=== PATIENT | female | born 1960 | race Caucasian/White ===

== ENCOUNTER 2017-08-20 13:13 | Outpatient (CLI) | payer OTHER ==
[2017-08-20 13:29] LABS: BASOPHILS % 0.6 (0.0-1.5); EOSINOPHILS % 0.3 % (0.0-6.8); MEAN CORPUSCULAR HEMOGLOBIN 30.6 pg (28.0-34.0); MEAN CORPUSCULAR VOLUME 90.3 fl (80.0-100.0); MONOCYTES % 8.8 % (0.0-11.0); NEUTROPHILS # 4.1 # k/uL (1.4-7.7)
[2017-08-20 14:46] LABS: eGFR (African) > 60; eGFR (Non-African) > 60
== END 2017-08-20 13:14 ==
LOC: LAB 13:13
PROVIDERS: ATTEND Family Medicine
DX: R63.4 Abnormal weight loss (principal)
CPT/HCPCS: 36415; 80053; 84443; 85025

== ENCOUNTER 2017-08-22 12:14 | Outpatient (CLI) | payer OTHER ==
--- NOTE | 2017-08-22 18:29 | Diagnostic Imaging Report ---
JOHN PAREDES [facility] [address] [facility] [address] [place], [place]. [address] Report Submission Date: Aug 22, 2017 12:41:54 PM CDT Patient Study Name: CHELA MONROE Date: Aug 22, 2017 12:20:43 PM CDT Modality Type: DX Gender: F Description: CHEST : 60 Institution: [facility] Physician: JOHN PAREDES Examination: PA and lateral chest. History: Evaluate lung garcia. CXR, HYPONATREMIA, WEIGHT LOSS, SMOKER, NO CHEST COMPLAINTS (Hx) Findings: PA lateral chest demonstrate a normal cardiac and mediastinal silhouette. Vascular calcifications involving the aortic arch. No focal infiltrate. No blunting of the costophrenic margins. Osseous structures are appropriate for age. Impression: No acute pulmonary process. Electronically signed on Aug 22, 2017 12:41:54 PM CDT by: Rajeev SNEED
== END 2017-08-22 12:30 ==
LOC: RAD 12:14
PROVIDERS: ATTEND Family Medicine
DX: E87.1 Hypo-osmolality and hyponatremia (principal)
CPT/HCPCS: 71046